=== PATIENT | male | born 1970 | race Caucasian/White ===

== ENCOUNTER 2021-04-28 18:25 | Emergency (ER) | payer SELFPAY ==
[~2021-04-28] VITALS: Ht 170.2 cm; Wt 75.0 kg
[2021-04-28] MEDS ORDERED: LIDOCAINE 5% PATCH TOP SCH (19:15)
[2021-04-28] MEDS ORDERED: KETOROLAC 60MG/2ML VIAL IM ONE (19:15)
[2021-04-28] MEDS ORDERED: CYCLOBENZAPRINE 10MG TABLET PO ONE (19:15)
[2021-04-28 21:56] VITALS: BP 126/71
[2021-04-28] MEDS ORDERED: IBUP-2030 MT (22:35)
[2021-04-28] MEDS ORDERED: TOPUD MT (22:35)
== END 2021-04-28 23:05 | disposition home or self-care (01) ==
LOC: ER 18:25
DX: M54.50 Low back pain, unspecified (principal); M25.551 Pain in right hip; M25.552 Pain in left hip
CPT/HCPCS: 72131; 72192; 96372; 99284; J1885